=== PATIENT | male | born 1950 ===

== ENCOUNTER → 2021-10-20 | Outpatient (CLI) | payer MEDICARE | LOC: LAB SHORT 11:37 → LAB 11:37 | DX: D48.5 Neoplasm of uncertain behavior of skin (principal); C44.311 Basal cell carcinoma of skin of nose; L73.8 Other specified follicular disorders; L57.8 Other skin changes due to chronic exposure to nonionizing radiation; I78.1 Nevus, non-neoplastic | CPT/HCPCS: 88305; 88312 ==